=== PATIENT | female | born 1985 | race Two or more races ===

== ENCOUNTER 2018-06-30 18:16 | Emergency (ER) | payer OTHER ==
[~2018-06-30] VITALS: Ht 157.5 cm; Wt 59.0 kg
[2018-06-30] MEDS ORDERED: RANI300T PO (18:45)
[2018-06-30] MEDS ORDERED: OMEP10CA4 PO (18:45)
[2018-06-30 19:02] LABS: MICROSCOPIC NOT IND
[2018-06-30 19:04] LABS: BASOPHILS # (AUTO) 0.02 x10^3/uL (0-0.1); BASOPHILS % (AUTO) 0 % (0-1); EOSINOPHILS # (AUTO) 0.13 x10^3/uL (0-0.4); EOSINOPHILS % (AUTO) 2 % (1-7); LYMPHOCYTES # (AUTO) 2.12 x10^3/uL (1-3.4); LYMPHOCYTES % (AUTO) 26 % (22-44); MD NO; MEAN CORPUSCULAR HEMOGLOBIN 32.8 pg (27.0-34.8); MEAN CORPUSCULAR HGB CONC 34.4 g/dL (32.4-35.8); MEAN CORPUSCULAR VOLUME 95.4 fL (80-100); MEAN PLATELET VOLUME 8.4 fL (7.4-10.4); MONOCYTES # (AUTO) 0.55 x10^3/uL (0.2-0.8); MONOCYTES % (AUTO) 7 % (2-9); NEUTROPHILS % (AUTO) 65 % (42-75); PLATELET COUNT 220 x10^3/uL (130-400); RED BLOOD COUNT 4.38 x10^6/uL (3.82-5.3)
[2018-06-30 19:05] LABS: CULTURE INDICATED? NO
[2018-06-30 19:12] LABS: ALANINE AMINOTRANSFERASE 32 U/L (12-78); ALBUMIN 3.8 g/dL (3.4-5.0); ANION GAP 6 mmol/L (5-15); CALCIUM 8.8 mg/dL (8.5-10.1); CHLORIDE 108 mmol/L (98-107)
[2018-06-30 19:17] LABS: ALKALINE PHOSPHATASE 103 U/L (45-117); BILIRUBIN,TOTAL 0.5 mg/dL (0.2-1.0); CREATININE 0.75 mg/dL (0.55-1.02); TOTAL PROTEIN 7.4 g/dL (6.4-8.2)
[2018-06-30] MEDS ORDERED: MAALOX/HYOSCYAMINE/LIDOCAINE 45 ML BTL ONE (19:22)
[2018-06-30] MEDS ORDERED: MAALOX/HYOSCYAMINE/LIDOCAINE 45 ML BTL PO ONE (19:30)
[2018-06-30 19:53] VITALS: BP 124/82
== END 2018-06-30 20:32 | disposition home or self-care (01) ==
LOC: ED 20:00
DX: R10.84 Generalized abdominal pain (principal); R19.7 Diarrhea, unspecified
CPT/HCPCS: 36415; 74021; 76700; 80053; 81003; 83690; 84703; 85025; 99285

== ENCOUNTER 2018-08-23 10:38 | Emergency (ER) | payer OTHER ==
[~2018-08-23] VITALS: Ht 157.5 cm; Wt 61.9 kg
[~2018-08-23 10:38] MED LIST: OMEP10CA4 PO; RANI300T PO
[2018-08-23 11:05] VITALS: BP 106/72
== END 2018-08-23 11:32 | disposition home or self-care (01) ==
LOC: ED 11:19
DX: K62.5 Hemorrhage of anus and rectum (principal); K64.8 Other hemorrhoids
CPT/HCPCS: 99283

== ENCOUNTER → 2019-02-26 | Outpatient (CLI) | payer BC, OTHER ==
[~2019-02-26] MED LIST changes: +GADOBUTROL 7.5 MMOL/7.5 ML VIAL ONE
== END | disposition home or self-care (01) ==
LOC: CFH 10:19
PROVIDERS: ATTEND Nurse Practitioner
DX: K76.0 Fatty (change of) liver, not elsewhere classified (principal); R16.0 Hepatomegaly, not elsewhere classified; D18.03 Hemangioma of intra-abdominal structures
CPT/HCPCS: 74183; A9585

== ENCOUNTER 2019-12-31 17:35 | Emergency (ER) | payer BC, OTHER ==
[~2019-12-31] VITALS: Ht 157.5 cm; Wt 65.3 kg
[~2019-12-31 17:35] MED LIST changes: -GADOBUTROL 7.5 MMOL/7.5 ML VIAL ONE; -OMEP10CA4 PO; +OMEP10CA5 PO
--- NOTE | 2019-12-31 18:37 | NUR ---
PT HERE WITH C/O PAIN TO LEFT ARM, CHEST, BACK, BREAST, AND NIPPLE X 5 DAYS. PT AAO X 4, NAD, ROOM AIR, IN GOWN AND ON FULL MONITOR. PT DENIES ANY TRAUMA TO INJURED AREA. CALL LIGHT WITHIN REACH AND SIDERAIL X [address]
[2019-12-31 18:46] VITALS: BP 130/70
--- NOTE | 2019-12-31 18:46 | NUR ---
AT BEDSIDE FOR EXAM.
[2019-12-31 19:05] LABS: BASOPHILS # (AUTO) 0.03 x10^3/uL (0-0.1); BASOPHILS % (AUTO) 0 % (0-1); EOSINOPHILS # (AUTO) 0.09 x10^3/uL (0-0.4); EOSINOPHILS % (AUTO) 1 % (1-7); LYMPHOCYTES % (AUTO) 24 % (22-44); MD NO; MEAN CORPUSCULAR HEMOGLOBIN 32.4 pg (27.0-34.8); MEAN CORPUSCULAR HGB CONC 34.1 g/dL (32.4-35.8); MEAN CORPUSCULAR VOLUME 95.2 fL (80-100); MEAN PLATELET VOLUME 8.5 fL (7.4-10.4); MONOCYTES # (AUTO) 0.58 x10^3/uL (0.2-0.8); MONOCYTES % (AUTO) 6 % (2-9); NEUTROPHILS # (AUTO) 6.46 x10^3/uL (1.8-6.8); NEUTROPHILS % (AUTO) 68 % (42-75); PLATELET COUNT 247 x10^3/uL (130-400); RED BLOOD COUNT 4.73 x10^6/uL (3.82-5.3); RED CELL DISTRIBUTION WIDTH 13.1 % (9.6-15.2)
[2019-12-31 19:15] LABS: ALBUMIN 4.3 g/dL (3.4-5.0); ANION GAP 7 mmol/L (5-15); CALCIUM 9.2 mg/dL (8.5-10.1); CHLORIDE 107 mmol/L (98-107); CREATININE 0.89 mg/dL (0.55-1.02)
--- NOTE | 2019-12-31 19:25 | NUR ---
ALL RESULTS BACKS AT THIS TIME, CHART UP FOR RECHECK.
--- NOTE | 2019-12-31 19:40 | NUR ---
RECEIVED REPORT FROM MARTHA HOLLINGSWORTH. ASSUMING CARE AT THIS TIME.
== END 2019-12-31 19:53 | disposition home or self-care (01) ==
LOC: ED 19:30
DX: S29.012A Strain of muscle and tendon of back wall of thorax, initial encounter (principal); M54.5 Low back pain; X58.XXXA Exposure to other specified factors, initial encounter; Y93.89 Activity, other specified; Y92.89 Other specified places as the place of occurrence of the external cause; Y99.8 Other external cause status
CPT/HCPCS: 36415; 71046; 80048; 82040; 84703; 85025; 85379; 99284